=== PATIENT | male | born 1980 | race Two or more races ===

== ENCOUNTER 2020-10-08 14:17 | Emergency (ER) | payer OTHER, SELFPAY ==
[2020-10-08 14:21] VITALS: BP 101/73; PULSE 78; RESP 16; TEMP 36.6; O2SAT 99; BMI 24.5
[2020-10-08 14:35] VITALS: BP 136/73; PULSE 74; RESP 17; TEMP 36.4; O2SAT 98
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
== END 2020-10-08 15:29 | disposition home or self-care (01) ==
PROVIDERS: Emergency Provider Emergency Medicine; PCP Family Medicine
DX: S13.4XXA Sprain of ligaments of cervical spine, initial encounter (principal); M54.2 Cervicalgia; V43.52XA Car driver injured in collision with other type car in traffic accident, initial encounter; Y93.9 Activity, unspecified; Y92.410 Unspecified street and highway as the place of occurrence of the external cause; Y99.9 Unspecified external cause status; Z79.899 Other long term (current) drug therapy
CPT/HCPCS: 99283

== ENCOUNTER 2023-08-27 14:12 | Outpatient (REF) | payer OTHER, SELFPAY ==
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
== END 2023-08-27 14:13 | disposition home or self-care (01) ==
LOC: HO.HHCX 14:12
PROVIDERS: Visit Provider Emergency Medicine
DX: S13.4XXA Sprain of ligaments of cervical spine, initial encounter (principal)
CPT/HCPCS: 72040